=== PATIENT | male | born 1985 | race Caucasian/White ===

== ENCOUNTER 2022-06-22 06:00 | Day surgery (SDC) | payer BC, SELFPAY ==
[2022-06-22] VITALS (7 sets, daily range): BP systolic 136–173; BP diastolic 86–103; PULSE 93–102; RESP 14–16; TEMP 36.8–37.1; O2SAT 96–100; BMI 33.3
[2022-06-22] MEDS: ETHYL CHLORIDE 1 APPLICATION 1 APPLIC TOPICAL (07:00)
[2022-06-22] MEDS: BUPIVACAINE 0.5% 30 ML INJECTION (07:00)
--- NOTE | 2022-06-22 07:35 | PM.ORPRC ---
Procedure Note Date of procedure: 06/22/22 Procedure: PREOPERATIVE DIAGNOSIS: 1. Right carpal tunnel syndrome POSTOPERATIVE DIAGNOSIS: 1. Right carpal tunnel syndrome PROCEDURE: 1. Right open carpal tunnel release SURGEON: John Cabrera MD. CUSTOMER ORDER CLERK: Faizan Pratt PA-C ANESTHESIA: Local anesthetic (50:50 mixture of 2% lidocaine with epi and 0.5% marcaine plain) IMPLANTS: None EBL: 2 mL TOURNIQUET: None COMPLICATIONS: None evident INDICATIONS: The patient is a pleasant 36-year-old male who has experienced right hand numbess/tingling affecting the radial 3.5 digits for multiple months. It has progressively gotten worse. Nonoperative management has been tried and failed, and therefore surgery was recommended. DESCRIPTION OF PROCEDURE: Following a thorough discussion of risks, benefits, and alternatives consent was obtained and the operative extremity was marked. The patient was brought to the operating room and placed supine on the operating table. Local anesthesia induction was undertaken in preop holding. No antibiotics were administered as this was planned to be a local case only. Proper time-out was performed identifying proper patient, site, and procedure. The operative extremity was prepped and draped in the appropriate sterile fashion using ChloraPrep. An incision was made in line with the radial border of the ring finger beginning 1 cm distal to the distal wrist crease and progressing for another 2.5cm distal. Caution was taken to stay proximal to Antonio's cardinal line. Sharp incision through the skin, subcutaneous tissue, and palmar fascia was performed. The thenar musculature was bluntly elevated off the transverse carpal ligament. The ligament was directly visualized, and divided sharply with a 15 blade. This was released from its most proximal to the most distal extent. Metzenbaum scissor was also utilized to release the fascia extension proximally. We confirmed complete release of the transverse carpal ligament. Closure was performed with 4-O nylon in interrupted fashion. Soft dressings were applied, and the patient was transferred to the recovery room in stable condition. PLAN: 1. Encourage elevation of the operative extremity. 2. Range of motion of the fingers and hand/wrist as tolerated. 3. Ibuprofen/acetaminophen and/or Percocet as needed for pain control. 4. Follow up with PA visit or nurse visit in 12-16 days for wound check and suture removal.
[2022-06-22] MEDS: NEOMYCIN/BACITRACIN/POLYMYXIN B 1 APPLIC TOPICAL (07:37)
== END 2022-06-22 07:53 | disposition home or self-care (01) ==
PROVIDERS: PCP Physician Assistant Medical; Visit Provider Orthopaedic Surgery Sports Medicine
PROC: (CPT 64721; principal; 2022-06-22 07:15)
DX: G56.01 Carpal tunnel syndrome, right upper limb (principal)
CPT/HCPCS: 64721; J3490

== ENCOUNTER 2023-06-01 10:17 | Outpatient (CLI) | payer BC, SELFPAY | END 2023-06-01 10:18 | disposition home or self-care (01) | LOC: FRMREF 10:18 | PROVIDERS: PCP Physician Assistant Medical; Visit Provider Physician Assistant Medical | DX: Z00.00 Encounter for general adult medical examination without abnormal findings (principal); R79.89 Other specified abnormal findings of blood chemistry; E10.9 Type 1 diabetes mellitus without complications; I10 Essential (primary) hypertension; E78.5 Hyperlipidemia, unspecified | CPT/HCPCS: 82607 ==

== ENCOUNTER 2024-06-07 14:11 | Outpatient (REF) | payer BC, SELFPAY ==
--- OUTSIDE RECORDS SUMMARY | 2024-06-07 14:14 | XMS_ITS | Clinical Summary ---
Author Organization [employer] [facility] Address [place], [place] [address] Care Team Providers Care Laboratory Development Technician Name Role Phone Chris Corrigan Primary Care Provider [phone] Allergies No known active allergies Medications Medication Sig Dispensed Refills Start Date End Date Status insulin lispro (HUMALOG; ADMELOG) 100 unit/mL injection USE 160 UNITS VIA INSULIN PUMP DAILY 01/01/2021 Active lisinopriL (PRINIVIL; ZESTRIL) 10 mg tablet Take 10 mg by mouth once daily. 09/24/2020 Active amLODIPine (NORVASC) 5 mg tabletIndications:HTN (hypertension) Take 1 Tablet (5 mg) by mouth once daily. 90 Tablet 3 01/17/2021 Active atorvastatin (LIPITOR) 10 mg tabletIndications:Other hyperlipidemia TAKE 1 TABLET(10 MG) BY MOUTH AT BEDTIME 30 Tablet 02/05/2022 Active Active Problems Problem Noted Date Diagnosed Date Type 1 diabetes mellitus without complications 0 01/17/2021 HTN (hypertension) 01/17/2021 Other hyperlipidemia 01/17/2021 Immunizations Name Administration Dates Next Due Influenza, IIV4 05/06/2020,04/18/2020 Tdap 07/19/2012 Social History Tobacco Use Types Packs/Day Years Used Date Smoking Tobacco: Never Smokeless Tobacco: Never Alcohol Use Standard Drinks/Week Comments Yes 0 (1 standard drink = 0.6 oz pur e alcohol) 2 drinks per week PHQ-2 Answer Date Recorded PHQ-2 TOTAL SCORE 0 01/17/2021 Social Connections Answer Date Recorded Frequency of Communication with Friends and Fami ly Not on file 07/19/2021 Financial Resource Strain Answer Date R ecorded Difficulty of Paying Living Expenses Not on file 07/19/2021 Difficulty of Paying Living Expenses Not on file 07/19/2021 Sex and Gender Information Value Date Recorded Sex Assigned at Not on file Gender Identity Not on file Sexual Orientation Not on file Obstetrics History Last Filed Vital Signs Vital Sign Reading Time Taken Comments Blood Pressure 144/88 01/17/2021 9:58 AM CDT Rec heck Pulse 88 01/17/2021 9:55 AM CDT Temperature - - Respiratory Rate - - Oxygen Saturation - - Inhaled Oxygen Concentration - - Weight 119.7 kg (263 lb 12.8 oz) 01/17/2021 9:55 AM CDT Height 188 cm (6' 2) 01/17/2021 9:55 AM CDT Body Mass Index 33.87 01/17/2021 9:55 AM CDT Plan of Treatment Health Maintenance Due Date Last Done Comments HIV for age 15-65 2002 Hepatitis C screening for ag e 18-79 2005 BMI (ht and wt on same day) for age 18+ 01/17/2022 01/17/2021 Depression screening for age 12+ 01/17/2022 01/17/2021 Tetanus booster 07/19/2022 07/19/2012 Lipids for age 35-44 2022 COVID-19 vaccine series ( season) 2024 05/16/2021, 10/28/2020, 10/05/2020 Influenza for age 9-49 03/19/2024 0, 04/18/2020 Tdap Completed 07/19/2012 Pneumococcal series for age 6-64 Aged Out No longer eligible b ased on patient's age to complete this topic Care Teams Laboratory Development Technician Relationship Specialty [place] [address] [place] [address] PCP - General Family Practice 01/17/21
--- OUTSIDE RECORDS SUMMARY | 2024-06-07 14:14 | XMS_ITS | Referral Summary ---
Author Organization [facility] Address [address] [place] [id number] Care Team Providers Care Spring Tester Name Role Phone [facility], [facility] Primary Care Provider Aristeo Ty MD Unavailable [phone] Allergies No known active allergies Medications atorvastatin (LIPITOR) 10 MG tablet Take 1 tablet (10 mg) by mouth daily Active amLODIPine (NORVASC) 5 MG tablet Take 1 tablet (5 mg) by mouth daily Active amLODIPine (NORVASC) 10 MG tablet Take 1 tablet (10 mg) by mouth daily 2 Active doxycycline hyclate (VIBRA-TABS) 100 MG tablet Take 1 tablet (100 mg) by mouth 2 times daily 2 Active lisinopril (ZESTRIL) 20 MG tablet Take 1 tablet (20 mg) by mouth daily 2 Active BAQSIMI ONE PACK 3 MG/DOSE POWD SPRAY ONCE IN ONE NOSTRIL FOR SEVERE HYPOGLYCEMIA 1 Active metFORMIN (GLUCOPHAGE) 500 MG tablet Take 2 tablets (1,000 mg) by mouth 2 times daily (with meals) 2 Active insulin aspart (NOVOLOG VIAL) 100 UNITS/ML vial USE 180 UNITS TOTAL DAILY IN INSULIN PUMP 2 Active Active Problems Problem Noted Date Diagnosed Date Hypertension goal BP (blood pressure) < 130/80 1 Hyperlipidemia LDL goal <70 04/27/2022 Type 1 diabetes mellitus without complications 0 01/17/2021 Immunizations Name Administration Dates Next Due COVID-19 Bivalent 18+ (Moderna) 03/28/2022 COVID-19 MONOVALENT 12+ (Pfizer) 05/16/2021,04/1 08/2020,10/05/2020 Influenza Vaccine (Flucelvax Quadrivalent) 05/21 Influenza Vaccine >6 months,quad, PF 05/06/2020, 04/18/2020 TDAP (Adacel,Boostrix) 07/19/2012 Social History Tobacco Use Types Packs/Day Years Used Date Smoking Tobacco: Never Smokeless Tobacco: Never Adolescent Education Answer Date Record ed Getting School Help Needed Not on file 04/10 Sex and Gender Information Value Date Recorded Sex Assigned at Not on file Legal Sex Male 11:56 AM CDT Gender Identity Not on file Sexual Orientation Not on file Last Filed Vital Signs Vital Sign Reading Time Taken Comments Blood Pressure 131/68 04/27/2022 1:00 AM CDT Pulse 102 04/27/2022 1:00 AM CDT Temperature 36.8 C (98.2 F) 04/26/2022 9:14 PM CDT Respiratory Rate 19 04/27/2022 1:00 AM CDT Oxygen Saturation 99% 04/27/2022 1:00 AM CDT Inhaled Oxygen Concentration - - Weight 120.7 kg (266 lb 1.5 oz) 04/26/2022 9:14 PM CDT Height 188 cm (6' 2) 04/26/2022 9:14 PM CDT Body Mass Index 34.16 04/26/2022 9:14 PM CDT Plan of Treatment Not on file Procedures Procedure Name Priority Date/Time Associated Diagnosis Comments BASIC METABOLIC PANEL STAT 04/26/2022 11:26 PM CDT from Last 3 Months or Most Recently Relevant to Health Maintenance Results * (ABNORMAL) Basic metabolic panel (BMP) (04/26/2022 11:26 PM CDT) Sodium 139 136 - 145 mmol/L 04/26/2022 11:53 PM CDT LABORATORY Potassium 4.4 3.4 - 5.3 mmol/L 04/26/2022 11:53 PM CDT [facility] Chloride 102 98 - 107 mmol/L 04/26/2022 11:53 PM CDT LABORATORY Carbon Dioxide (CO2) 25 22 - 29 mmol/L 04/26/2022 11:53 PM CDT LABORATORY Anion Gap 12 7 - 15 mmol/L 04/26/2022 11:53 PM CDT [facility] Urea Nitrogen 17.4 6.0 - 20.0 mg/dL 04/26/2022 11:53 PM CDT LABORATORY Creatinine 1.25(H) 0.67 - 1.17 mg/dL 04/26/2022 11:53 PM CDT LABORATORY Calcium 9.6 8.6 - 10.0 mg/dL 04/26/2022 11:53 PM CDT LABORATORY Glucose 125(H) 70 - 99 mg/dL 04/26/2022 11:53 PM CDT [facility] GFR Estimate 77 >60 mL/min/1.7 3m2 04/26/2022 11:53 PM CDT [facility] Comment:Effective June 192020 eGFRcr in adults is calculated using the 2020 CKD-EPI creatinine equation which includes age and gender (Karen et al., NEJ, DOI: 10.1056/UVLImh0455157) Blood STRUCTURE OF LEFT UPPER LIMB / Unknown Venipuncture / Unknown 04/26/2022 11:26 PM CDT 04/26/2022 11:34 PM CDT Raman Enrique MD LAB - BLOOD ORDERABLES Final Res ult LABORATORY [facility] [address] Lab (1st floor, no room number) [place] [address], [facility] [phone] from Last 3 Months or Most Recently Relevant to Health Maintenance Insurance [facility] Care Teams Spring Tester Relationship Specialty Start Date End Date [facility], [address] [address] PCP - General 04/26/22 Aristeo Ty MD [address] [place] [address] Assigned PCP 04/09/22
--- OUTSIDE RECORDS SUMMARY | 2024-06-07 14:14 | XMS_ITS | Referral Summary ---
Author Organization [facility] Address [address] [place] [address] Care Team Providers Care Weight Loss Sales Consultant Name Role Phone Ilir Weiss Primary Care Provider [phone] Loretta Basurto PA-C Unavailable Allergies Active Allergy Reactions Criticality Noted Date Comments Sulfa (Sulfonamide Antibiotics) 09/17/2023 Other Reaction(s): Not available Medications amLODIPine (NORVASC) 10 mg oral tablet TAKE 1 TABLET BY MOUTH DAILY DIRECTED Active atorvastatin (LIPITOR) 10 mg oral tablet Active MOUNJARO 2.5 mg/0.5 mL SubQ PnIj INJECT 2.5 MG ONCE WEEKLY IN THE ABDOMEN 09/03/2023 Active insulin aspart 70/30 mix (NOVOLOG MIX 70-30 U-100 INSULN) 100 unit/mL SubQ Soln 06/30/2005 Active insulin aspart (NOVOLOG) 100 unit/mL SubQ vial USE 180 UNITS TOTAL DAILY IN INSULIN PUMP 07/13/2023 Active lisinopriL (PRINIVIL) 30 mg oral tablet Take 1 tablet (30 mg) by mouth once daily. Active omeprazole (PRILOSEC) 20 mg oral delayed release capsule Take 1 capsule (20 mg) by mouth once daily. 07/23/2023 Active pregabalin (LYRICA) 50 mg oral capsule TAKE 1 CAPSULE BY MOUTH EVERY DAY AT BEDTIME 08/19/2023 Active Active Problems Problem Noted Date Diagnosed Date Hypertension 01/17/2021 Other hyperlipidemia 01/17/2021 Type 1 diabetes mellitus without complications 0 01/17/2021 Immunizations Name Administration Dates Next Due Influenza split virus (Fluzo ne Quadrivalent PF) 06/01/2023,06/09/2022,05/06/2020,2019 Moderna 12+ Yrs Bivalent COV ID Vaccine (Blue cap) 03/28/2022 Pfizer 12+ Yrs Monovalent CO VID Vaccine (purple cap) 05/16/2021,10/28/2020,10/05/2020 Td adult absorbed PF (2 Lf) 06/01/2023 Tdap 07/19/2012 Social History Tobacco Use Types Packs/Day Years Used Date Smoking Tobacco: Never Smokeless Tobacco: Never Tobacco Cessation:Counseling Given: Not Answered Alcohol Use Standard Drinks/Week Comments Yes 1 (1 standard drink = 0.6 oz pur e alcohol) Sex and Gender Information Value Date Recorded Sex Assigned at Not on file Legal Sex Male 10:34 AM EXECUTIVE ASST Gender Identity Not on file Sexual Orientation Not on file Last Filed Vital Signs Vital Sign Reading Time Taken Comments Blood Pressure 142/80 09/17/2023 10:33 AM EXECUTIVE ASST Pulse - - Temperature - - Respiratory Rate - - Oxygen Saturation - - Inhaled Oxygen Concentration - - Weight 106.6 kg (235 lb) 09/17/2023 10:33 AM EXECUTIVE ASST Height 188 cm (6' 2) 09/17/2023 10:33 AM EXECUTIVE ASST Body Mass Index 30.17 09/17/2023 10:33 AM EXECUTIVE ASST Plan of Treatment Not on file Insurance [facility] Care Teams Weight Loss Sales Consultant Relationship Specialty Start Date End Date Ilir Weiss PA [address] [place] [address] PCP - General 08/31/23 Loretta Basurto PA-C [address] [place] [address] [address] [place] [address] Neurology 08/31/23
--- OUTSIDE RECORDS SUMMARY | 2024-06-07 14:14 | XMS_ITS | Clinical Summary ---
Author Organization [place] Address [address] [place] [address] Care Team Providers Care Night Filler Name Role Phone [facility], [facility] Primary Care Provider Aristeo Ty MD Unavailable [phone] Allergies No known active allergies Medications [...] 18+ (Moderna) 03/28/2022 COVID-19 MONOVALENT 12+ (Pfizer) 05/16/2021,04/08/2020,10/05/2020 Influenza Vaccine (Flucelvax Quadrivalent) 05/21 Influenza Vaccine >6 months,quad, PF 05/06/2020, 04/18/2020 TDAP (Adacel,Boostrix) 07/19/2012 Family History Medical History Relation Comments Hypertension Mother Breast Cancer No family hx of Cerebrovascular Disease No family hx of Colon Cancer No family hx of Coronary Artery Disease No family hx of Diabetes No family hx of Hyperlipidemia No family hx of Prostate Cancer No family hx of Relation Status Comments Father Alive Mother Alive Son Alive Social History Tobacco Use Types Packs/Day Years [...] 04/26/2022 9:14 PM CDT Plan of Treatment Health Maintenance Due Date Last Done Comments A1C 1987 ADVANCE CARE PLANNING 1987 ANNUAL REVIEW OF HM ORDERS 1987 DIABETIC FOOT EXAM 1987 EYE EXAM 1987 LIPID 1987 MICROALBUMIN 1987 YEARLY PREVENTIVE VISIT 1987 Pneumococcal Vaccine: Pediatrics (0 to 5 Years) and At-Risk Patients (6 to 64 Years) (1 of 2 - PCV) 1993 HEPATITIS B IMMUNIZATION (1 of 3 - 19+ 3-dose series) 2006 DTAP/TDAP/TD IMMUNIZATION (2 - Td or Tdap) 07/19/2022 07/19/2012 BMP 04/26/2023 04/26/2022, 02/12/2020 PHQ-2 (once per calendar year) 2023 COVID-19 Vaccine ( season) 2024 03/28/2022, 05/16/2021, 10/28/2020, Additional history exists INFLUENZA VACCINE (#1) 2024 , 05/06/2020, 04/18/2020 RSV VACCINE (1 - 1-dose 75+ series) 2062 HEPATITIS C SCREENING Discontinued HIV SCREENING Discontinued HPV IMMUNIZATION Aged Out No longer e ligible based on patient's age to complete this topic MENINGITIS IMMUNIZATION Aged Out No l onger eligible based on patient's age to complete this topic RSV MONOCLONAL ANTIBODY Aged Out No l onger eligible based on patient's age to complete this topic Procedures Procedure Name Priority Date/Time Associated Diagnosis Comments BASIC METABOLIC PANEL STAT 04/26/2022 11:26 PM CDT from Last 3 Months or Most Recently Relevant to Health Maintenance Results * (ABNORMAL) Basic metabolic panel (BMP) (04/26/2022 11:26 PM CDT) Sodium 139 136 - 145 mmol/L 04/26/2022 11:53 PM CDT [facility] Potassium 4.4 3.4 - 5.3 mmol/L 04/26/2022 11:53 PM CDT [facility] Chloride 102 98 - 107 mmol/L 04/26/2022 11:53 PM CDT [facility] Carbon Dioxide (CO2) 25 22 - 29 mmol/L 04/26/2022 11:53 PM CDT [facility] Anion Gap 12 7 - 15 mmol/L 04/26/2022 11:53 PM CDT [facility] Urea Nitrogen 17.4 6.0 - 20.0 mg/dL 04/26/2022 11:53 PM CDT [facility] Creatinine 1.25(H) 0.67 - 1.17 mg/dL 04/26/2022 11:53 PM CDT [facility] Calcium 9.6 8.6 - 10.0 mg/dL 04/26/2022 11:53 PM CDT [facility] Glucose 125(H) 70 - 99 mg/dL 04/26/2022 11:53 PM CDT [facility] GFR Estimate 77 >60 mL/min/1.7 3m2 04/26/2022 11:53 PM CDT [facility] Comment:Effective June 192020 eGFRcr in adults is calculated using the 2020 CKD-EPI creatinine equation which includes age and gender (Karen et al., NE, DOI: 10.1056/JGRWxk6663897) Blood STRUCTURE OF LEFT UPPER LIMB / Unknown Venipuncture / Unknown 04/26/2022 11:26 PM CDT 04/26/2022 11:34 PM CDT Raman Enrique MD LAB - BLOOD ORDERABLES Final Res ult LABORATORY [facility] Lab [address] [facility] Lab (1st floor, no room number) [place] [address]RUST [phone] from Last 3 Months or Most Recently Relevant to Health Maintenance Insurance [facility] Care Teams Night Filler Relationship Specialty Start Date End Date Clinic, [address] [address] PCP - General 04/26/22 Aristeo Ty MD [address] [place] [address] Assigned PCP 04/09/22
[2024-06-07 15:53] LABS: Alanine Aminotransferase* 56 U/L (4-50); Aspartate Amino Transferase* 44 U/L (12-35); Cholesterol* 155 mg/dL (90-199); HDL Cholesterol* 36 mg/dL (>=40); LDL Cholesterol Calculated 78 mg/dL (<100); Triglycerides* 204 mg/dL (40-149)
== END 2024-06-07 14:12 | disposition home or self-care (01) ==
LOC: NPINS 14:11
PROVIDERS: PCP Physician Assistant Medical; Visit Provider Physician Assistant
DX: Z79.899 Other long term (current) drug therapy (principal)
CPT/HCPCS: 80061; 84450; 84460

== ENCOUNTER 2024-07-27 13:55 | Outpatient (REF) | payer BC, SELFPAY ==
[2024-07-27 14:39] LABS: Alanine Aminotransferase* 54 U/L (4-50); Aspartate Amino Transferase* 44 U/L (12-35); Cholesterol* 172 mg/dL (90-199); Triglycerides* 306 mg/dL (40-149)
[2024-07-27 14:40] LABS: HDL Cholesterol* 39 mg/dL (>=40); LDL Cholesterol Calculated 72 mg/dL (<100)
== END 2024-07-27 13:56 | disposition home or self-care (01) ==
LOC: NPINS 13:55
PROVIDERS: PCP Physician Assistant Medical; Visit Provider Physician Assistant
DX: Z79.899 Other long term (current) drug therapy (principal)
CPT/HCPCS: 80061; 84450; 84460

== ENCOUNTER 2024-08-08 08:00 | Outpatient (CLI) | payer BC, SELFPAY | END 2024-08-08 08:01 | disposition home or self-care (01) | LOC: NFLDREF 08-18 07:52 | PROVIDERS: PCP Physician Assistant Medical; Referring Provider Physician Assistant Medical; Visit Provider Physician Assistant Medical | DX: R68.82 Decreased libido (principal) | CPT/HCPCS: 84403 ==

== ENCOUNTER 2024-10-24 07:22 | Outpatient (CLI) | payer BC, SELFPAY ==
[2024-10-24 13:58] LABS: Alanine Aminotransferase* 39 U/L (4-50); Aspartate Amino Transferase* 37 U/L (12-35); Cholesterol* 161 mg/dL (90-199)
[2024-10-24 13:59] LABS: HDL Cholesterol* 35 mg/dL (>=40); LDL Cholesterol Calculated 65 mg/dL (<100); Triglycerides* 306 mg/dL (40-149)
== END 2024-10-24 07:23 | disposition home or self-care (01) ==
LOC: NPINS 07:23
PROVIDERS: PCP Physician Assistant Medical; Visit Provider Physician Assistant Medical
DX: L70.0 Acne vulgaris (principal); L85.3 Xerosis cutis; Z79.899 Other long term (current) drug therapy; L90.5 Scar conditions and fibrosis of skin; R04.0 Epistaxis
CPT/HCPCS: 80061; 84450; 84460

== ENCOUNTER 2024-11-15 08:01 | Outpatient (CLI) | payer BC, SELFPAY ==
--- NOTE | 2024-11-15 08:15 | CRLHL7_ITS ---
For Patients: As a result of the Century Cures Act, medical imaging exams and procedure reports are released immediately into your electronic medical record. You may view this report before your referring provider. If you have questions, please contact your health care provider. EXAM: MRI OF THE RIGHT FOOT, WITHOUT CONTRAST CLINICAL INDICATION: Medial forefoot pain. Neuritis. PRIOR SURGERY: None. COMPARISON PLAIN FILMS: 29 September 2024. COMPARISON CROSS-SECTIONAL IMAGING STUDIES: None. TECHNICAL: Axial, sagittal and coronal T1, PD and STIR images. FINDINGS: OSSEOUS STRUCTURES: No fracture, bone marrow contusion, stress change or marrow replacement process. JOINT SPACES: Joint spaces within the visualized forefoot, at the midfoot-forefoot junction and within the midfoot are maintained. LIGAMENTS: The Lisfranc ligament is intact. TMT joint alignment is maintained. The collateral ligaments of the MTP joints are intact. TENDONS AND MUSCLES: The flexor and extensor tendons are intact. The distal peroneus longus and brevis tendons are intact. No muscle atrophy or edema. SOFT TISSUES: The visualized plantar aponeurosis is intact. No Gardner???s neuroma or intermetatarsal bursitis. No soft tissue mass, fluid collection or ganglion. IMPRESSION: 1. Unremarkable noncontrast MRI of the right forefoot. Dictated by Andrew Zuñiga MD @ 11/16/2024 9:34:10 AM (Electronically Signed)
== END 2024-11-15 08:02 | disposition home or self-care (01) ==
LOC: MRI 08:03
PROVIDERS: PCP Physician Assistant Medical; Visit Provider Podiatrist
DX: M79.671 Pain in right foot (principal); M79.2 Neuralgia and neuritis, unspecified
CPT/HCPCS: 73718

== ENCOUNTER 2024-12-14 07:32 | Outpatient (CLI) | payer BC, SELFPAY ==
[2024-12-14 13:42] LABS: Cholesterol* 161 mg/dL (90-199); HDL Cholesterol* 35 mg/dL (>=40); LDL Cholesterol Calculated 88 mg/dL (<100); Triglycerides* 189 mg/dL (40-149)
== END 2024-12-14 07:33 | disposition home or self-care (01) ==
LOC: NPINS 07:33
PROVIDERS: PCP Physician Assistant Medical; Visit Provider Physician Assistant Medical
DX: Z79.899 Other long term (current) drug therapy (principal)
CPT/HCPCS: 80061